=== PATIENT | male | born 1990 | race Hispanic/Latino ===

== ENCOUNTER 2016-06-04 14:02 | Emergency (ER) | payer OTHER, SELFPAY ==
[2016-06-04 14:28] LABS: #Basophils 0.1 thou/uL (0.0-0.2); #Eosinphils 0.1 thou/uL (0.0-0.7); #Lymphocytes 2.1 thou/uL (1.20-3.40); #Monocytes 0.6 thou/uL (0.11-0.59); #Neutrophils 7.7 thou/uL (1.40-6.50); %Basophils 0.6 % (0.0-1.0); %Eosinophils 1.3 % (0.0-10.0); %Monocytes 5.5 % (0.0-10.0); Hematocrit 42.8 % (42.0-52.0); Mean Platelet Volume 9.7 fL (7.4-10.4); Red Blood Cell (RBC) Count 4.61 mill/uL (4.70-6.10); White Blood Cell (WBC) Count 10.6 thou/uL (4.8-10.8)
[2016-06-04 14:44] LABS: ALT (SGPT) 35 U/L (0-55); AST (SGOT) 39 U/L (5-34); Alkaline Phosphatase 59 U/L (40-150); Anion Gap 13 mmol/L (10-20); BUN (Urea Nitrogen) 11 mg/dL (8.9-20.6); Bilirubin, Total 0.7 mg/dL (0.2-1.2); Calc. Creatinine Clearance 0 mL/min (70-130); Calcium 9.3 mg/dL (7.8-10.44); Carbon Dioxide 27 mmol/L (22-29); Chloride 103 mmol/L (98-107); Estimated GFR-MDRD 76; Lipase 20 U/L (8-78); Protein, Total 7.6 g/dL (6.0-8.3)
[2016-06-04] MEDS ORDERED: Fentanyl 100 MCG/2 ML VIAL ONE ×2 (14:55→15:58)
[2016-06-04] MEDS ORDERED: Adacel (T-DAP) 0.5 ML VIAL ONE (15:29)
[2016-06-04 15:47] LABS: Troponin I Less than 0.010 ng/mL (< 0.028)
--- NOTE | 2016-06-04 16:54 | ERRECORD ---
[facility] EMERGENCY RECORD HPI FALL (14:25 JPIP) CHIEF COMPLAINT: Patient presents for evaluation of fall, from height 15-20 feet, landing on hard surface, landing on back, Patient presents for evaluation of Fell from a roof top, approx 15 feet. HISTORIAN: History provided by patient, History obtained with the assistance of a hospitality team member, male accompanying patient. QUALITY: Pain is dull in nature. TIME COURSE: Sudden onset of symptoms, just prior to arrival, There has been no change in the patient's symptoms over time, are constant. ASSOCIATED WITH: No associated neck pain, No associated chest pain, No associated abdominal pain, Associated with back pain, moderate, to the upper back, to the lower back, No associated clavicle pain, No associated shoulder pain, No associated elbow pain, No associated wrist pain, No associated hand pain, No associated finger pain, No associated hip pain, No associated knee pain, No associated ankle pain, No associated foot pain, Associated with contusion(s), to the back, to the forearm, No associated laceration(s), Associated with inability to ambulate, No associated loss of consciousness, No associated neurological symptoms prior to arrival, No associated shortness of breath, No associated syncope, No associated vomiting. EXACERBATED BY: Patient's condition exacerbated by walking, Patient's condition exacerbated by movement , palpation and deep breathing/cough. RELIEVED BY: Patient's condition relieved by nothing. RISK FACTORS: Risk factors for spinal injury. ROS (14:27 JPIP) CONSTITUTIONAL: Historian denies lethargy, patient denies LOC or head injury. ENT: Historian denies otorrhea, denies rhinorrhea. CARDIOVASCULAR: Historian denies chest pain. RESPIRATORY: Historian denies cough, denies shortness of breath. back pain with respirations. GI: Historian denies abdominal pain, denies nausea, denies vomiting. GENITOURINARY MALE: Historian denies incontinence. MUSCULOSKELETAL: Historian reports arthralgias, reports back pain, denies deformity, reports fall, reports injury, reports myalgias. SKIN: Historian reports skin lesions, ulnar side of left forearm. NEUROLOGIC: Historian denies confusion, denies dizziness, denies focal weakness, denies headache, denies lethargy, denies mental status changes, denies paresthesias. NOTES: All systems reviewed, negative except as described above. &a-1R&a+25V*p+0X*k4857V*c202B*c15G*c2P*p-0X&a-25V&a+1R Name: Tab Omalley : 1990 M25 MedRec: [id number] AcctNum: [id number] Prepared: TueJun 04, 2016 16:18 by Interface Page 1 of 4 pMD [facility] EMERGENCY RECORD PAST MEDICAL HISTORY (15:41 JPIP) MEDICAL HISTORY: No past medical history. MALE SURGICAL HISTORY: Patient has no surgical history. PSYCHIATRIC HISTORY: No previous psychiatric history. SOCIAL HISTORY: Patient denies drug use, Patient has no smoking history. FAMILY HISTORY: No known family hisotry. NOTES: Nursing records reviewed, Medication list reviewed. KNOWN ALLERGIES No recorded allergies CURRENT MEDICATIONS No recorded medications VITAL SIGNS (14:08 [facility]) VITAL SIGNS: BP: 133/107, Pulse: 83, Resp: 16, Temp: 98.6 (Oral), Pain: 10, O2 sat: 100 on Room Air, Time: 06/04/2016 14:08. PHYSICAL EXAM (14:29 JPIP) CONSTITUTIONAL: Vital signs reviewed, Patient afebrile, Pulse normal, Blood pressure, hypertensive, Respiratory rate normal, Patient appears in pain, in moderate pain distress, Patient alert and oriented to person, place and time. HEAD: Head exam included findings of head atraumatic, normocephalic. EYES: Eye exam included findings of eyelids normal to inspection, Pupils equally round and reactive to light, Left pupil 3 mm in size, Right pupil 3 mm in size, Extraocular muscles intact, Conjunctiva normal, Sclera normal, no periorbital ecchymosis, no periorbital edema, no periorbital erythema. ENT: Ear exam normal, external ear normal, tympanic membranes normal, no foreign body, no drainage, no bleeding, Pharynx exam normal, not injected, Mouth exam normal, mucous membranes moist, no lacerations, Teeth with, poor dentition. NECK: Neck exam included findings of normal range of motion, Trachea midline, no cervical adenopathy, no tenderness. RESPIRATORY CHEST: Respiratory exam included findings of no respiratory distress, Breath sounds clear, No wheezing, No rales, No rhonchi, Breath sounds not absent, Breath sounds not diminished. CARDIOVASCULAR: Cardiovascular exam included findings of, rate tachycardic, rhythm regular, Heart sounds normal, no murmurs, no rub. ABDOMEN MALE: Abdominal exam included findings of abdomen nontender, Liver normal, Spleen normal, no distension, no mass, no pulsatile masses, no peritoneal signs, no rigidity, no guarding, no rebound. BACK: Back exam included findings of normal inspection, Range of motion, limited by pain, Tenderness, midline to the upper back, &a-1R&a+25V*p+0X*m0325Q*c202B*c15G*c2P*p-0X&a-25V&a+1R Name: FraustoTab Saucedo : 1990 M25 MedRec: [id number] AcctNum: [id number] Prepared: TueJun 04, 2016 16:18 by Interface Page 2 of 4 pMD [facility] EMERGENCY RECORD midline to the mid back, midline to the lower back, paraspinal to the left lower back, paraspinal to the right lower, Costovertebral angle tenderness, on the left. UPPER EXTREMITY: Upper extremity exam included findings of inspection abnormal, abrasions present, ulnar side of the left forearm from the olecranon to the wrist, range of motion normal, capillary refill less than 2 seconds, distal motor intact, Clavicle examination normal findings, bilaterally, no tenderness to palpation, Shoulder examination normal findings, both shoulders, no tenderness to palpation, Upper arm examination normal findings, bilaterally, no tenderness to palpation, Elbow examination normal findings, both elbows, no tenderness to palpation, Abrasions on the forearm, left forearm, proximal, middle, distal, medial, Forearm exam shows, no tenderness to palpation no deformity, Wrist examination normal findings, both wrists, no tenderness to palpation, Hand examination normal findings, both hands, no abrasions, no deformity, no swelling, full range of motion. LOWER EXTREMITY: Left pelvis exam normal, no obvious deformity, no tenderness, Right pelvis exam normal, no obvious deformity, no tenderness, Left hip exam normal, no deformity, no tenderness to palpation, Right hip exam normal, no deformity, no tenderness to palpation, Left thigh exam normal, no obvious deformity, no tenderness, Right thigh exam normal, no obvious deformity, no tenderness, Left knee exam normal, no deformity, no tenderness to palpation, Right knee exam normal, no deformity, no tenderness to palpation, Left lower leg exam normal, no obvious deformity, no tenderness, Right lower leg exam normal, no obvious deformity, no tenderness, Left ankle exam normal, no deformity, no tenderness, Right ankle exam normal, no deformity, no tenderness. NEURO: May coma scale 15, Cranial nerves intact, no focal motor deficits, no nystagmus, CN II-XII intact. SKIN: Skin exam included findings of skin warm, dry, and normal in color, abrasion to the ulnar side of the left forearm. PSYCHIATRIC: Normal affect. EKG INTERPRETATION (15:32 JPIP) MONITOR STRIP: clay products glazer strip interpreted by Emergency Department Physician, Monitor strip shows normal sinus rhythm, with no ectopics. 12 LEAD EKG INTERPRETATION: 12 lead EKG interpreted by Emergency Department Physician at time of study, 12 lead EKG shows normal sinus rhythm, Rate (beats per minute): 83, with no ectopics, Conduction with, incomplete right bundle branch block, ST segments normal, T waves normal, Minier, right, Clinical impression:, non-specific EKG. RADIOLOGYINTERPRETATION (15:09 JPIP) &a-1R&a+25V*p+0X*x3400N*c202B*c15G*c2P*p-0X&a-25V&a+1R Name: Tab Omalley : 1990 M25 MedRec: [id number] AcctNum: [id number] Prepared: TueJun 04, 2016 16:18 by Interface Page 3 of 4 pMD [facility] EMERGENCY RECORD HEAD: Head CT, with contrast shows, no fluid in the sinuses, no acute ischemic stroke, no epidural hematoma, no subarachnoid hemorrhage, Subdural hematoma to the left occipital lobe. NECK: Cervical spine CT negative, no fracture, no subluxation, no bony lesion, no cord compression. BACK: Thoracic spine CT shows, compression fracture, subluxation of T12. CHEST: Chest CT negative, with contrast, no pneumothorax, no hemothorax, no infiltrates, no effusion. ABDOMEN: Abdomen/pelvis CT scan, with contrast negative, no injuries, no free air. ASSISTANT SECRETARY: Preliminary review of CT scans by, Radiologist. MEDICATION ADMINISTRATION SUMMARY Drug Name: fentaNYL (PF) injection, Dose Ordered: 100 mcg, Route: IV Push, Status: Given, Time: 16:02 06/04/2016, Drug Name: Adacel(Tdap Adolesn/Adult)(PF), Dose Ordered: 0.5 mL, Route: Intramuscular, Status: Given, Time: 15:40 06/04/2016, Drug Name: Normal Saline, Dose Ordered: 150 mL/hr, Route: IV Fluid Infusion, Status: Given, Time: 15:27 06/04/2016, Drug Name: fentaNYL (PF) injection, Dose Ordered: 100 mcg, Route: IV Push, Status: Given, Time: 15:00 06/04/2016, Drug Name: Normal Saline, Dose Ordered: 1000 mL/hr, Route: IV Fluid Infusion, Status: Given, Time: 14:56 06/04/2016, Detailed record available in Medication Service section. PROBLEM LIST No recorded problems DIAGNOSIS (16:08 IP) FINAL: PRIMARY: TRAUMAT SUBDURAL HEMOR NO LOC INIT, ADDITIONAL: T12 compression fx. PRESCRIPTION No recorded prescriptions DISPOSITION PATIENT: Disposition Type: Transfer, Disposition: Transfer to [facility], Disposition Transport: Ambulance, Condition: Good. (16:08 IP) Patient left the department. (16:11 [facility]) Avilez: AHOO=[place] Salgado, August JPIP=DO Hess Joseph JSMI=DENISE Higgins, Sherin &a-1R&a+25V*p+0X*a2621R*c202B*c15G*c2P*p-0X&a-25V&a+1R Name: Tab Omalley : 1990 M25 MedRec: [id number] AcctNum: [id number] Prepared: TueJun 04, 2016 16:18 by Interface Page 4 of 4 pMD MTDD
--- NOTE | 2016-06-04 16:58 | PICIS ---
[facility] EMERGENCY RECORD COMMUNICATIONS (15:48 JPIP) COMMUNICATIONS: Physician, contacted/paged at 1548, Reason for notification transfer, Dr Lewis accepts. TRIAGE (14:35) PATIENT: Zip Code: [address], PHONE: , PAYMENT: SJX Self Pay. (14:35) AGE: 25, GENDER: male, : Tue1990, TIME OF GREET: TueJun 04, 2016 14:03, PREFERRED LANGUAGE: Prydeinig, ETHNICITY: or , ECODE BILLING MAP: [facility] ER, KG WEIGHT: 65.77 (est.), , , PERSON ID: [id number]. (14:15 JPIP) NAME: Tab Omalley (15:35) ADMISSION: URGENCY: 2 Emergent, ADMISSION SOURCE: Home, TRANSPORT: CAR, BED: TRIAGE. (14:15 JPIP) ASSESSMENT: Assessment: PT PRESENTS AWAKE ALERT AND ORIENTED. SKIN PINK WARM AND DRY., Symptoms began 06/04/2016 1330. (15:52 JSMI) PAIN: Patient complains of pain described as, aching, Pain is constant. (15:52 JSMI) IMMUNIZATIONS: Flu vaccine not up to date, Tetanus not up to date. (15:52 JSMI) SIRS SCORING: Heart Rate 55-109 (0), Temp range 96.8-101.1 (0), respiratory rate 12-24 (0), Latest WBC 3-14.9 (0), Mental Status altered: no (0), Infection or Suspected Infection: No. (15:52 JSMI) KNOWN ALLERGIES No recorded allergies CURRENT MEDICATIONS No recorded medications VITAL SIGNS (14:08 JSMI) VITAL SIGNS: BP: 133/107, Pulse: 83, Resp: 16, Temp: 98.6 (Oral), Pain: 10, O2 sat: 100 on Room Air, Time: 06/04/2016 14:08. NURSING PROCEDURE: EKG CHART (15:28 AHOO) PATIENT IDENTIFIER: Patient actively involved in identification process, Patient's identity verified by patient stating name, Patient's identity verified by patient stating date, Patient's identity verified by hospital ID bracelet, Patient's identity verified by other identifier PT BOSS. EKG: EKG indicated for TRAUMA FALL, 12 lead EKG performed on the left chest, done by SOMMER KOVACS LVN, first EKG. FOLLOW-UP: After procedure, EKG for interpretation given to Dr. DR HESS. NURSING PROCEDURE: IV IV SITE 1: IV established, to the left antecubital, using an 18 gauge catheter, in one attempt, IV site prepped with chlorahexadine. (14:15 JSMI) &a-1R&a+25V*p+0X*l5318S*c202B*c15G*c2P*p-0X&a-25V&a+1R Name: Tab Omalley : 1990 M25 MedRec: [id number] AcctNum: [id number] Prepared: TueJun 04, 2016 16:23 by Interface Page 1 of 12 pMD [facility] EMERGENCY RECORD FOLLOW-UP SITE 1: After procedure, sterile transparent dressing applied, After procedure, no drainage at IV site, After procedure, no swelling at IV site, After procedure, no redness at IV site, Notes: IV PATENT AND INFUSING WITHOUT ANY DIFFICULTY, NO BLEEDING, BRUISING OR EDEMA NOTED. (16:05 AHOO) NURSING PROCEDURE: TRANSFER TRANSFER: Reason for transfer need for specialized care, Diagnosis: SUBDURAL BLEED, T-12 COMPRESSION FRACTURE, Accepting institution: [facility], Accepting physician: DR LEWIS, Referring physician: DR HESS, Transported by urgent ambulance, accompanied by emergency medical services personnel, Copy of patient record prepared for receiving facility, Copy of diagnostic studies, Medication reconciliation form prepared and sent to receiving facility, Patient consent for transfer signed, Family member contacted, PT BOSS AT BEDSIDE AND PT BROTHER CALLED BY HIS BOSS, Notes: 1545 CALLED THE TRANSFER CENTER SPOKE WITH KRISTINE, AUTO LAUNCHED GROUND NOTIFIED EMS AT 1545, EMS ALREADY HERE IN ER, 1548 DR LEWIS ACCEPTED, 1548 ACCEPTING AD IS JOSH DICKENS. (16:03 AHOO) Report called to receiving facility, ASHLEY WALKER, Provided opportunity to answer questions, Bed assigned ER. (16:08 AHOO) NOTES: Notes: EMS LEFT WITH THE PT. (16:07 AHOO) NURSING PROCEDURE: TRANSPORT TO TESTS PATIENT IDENTIFIER: Patient actively involved in identification process, Patient's identity verified by patient stating name, Patient's identity verified by patient stating date, Patient's identity verified by hospital ID braryan, Patient's identity verified by family member. (14:20 AHOO) TRANSPORT TO TESTS: Patient transported to CT scan, via cart, Accompanied by x-ray solar technician. (14:20 AHOO) FOLLOW-UP: After procedure, patient returned to emergency department. (14:46 AHOO) ORDER DETAILS Order Name: Cardiac Profile w/CKMB & Troponin - I, Status: Active, Time: 15:21 06/04/2016, User: ERICH, - Ordered for: DO Hess Joseph, - Entered by: DO Hess Joseph - TueJun 04, 2016 15:21, - Quantity: 1, Order Name: CBC with Differential, Status: Active, Time: 14:16 06/04/2016, User: ERICH, - Ordered for: DO Hess Joseph, - Entered by: DO Hess Joseph - TueJun 04, 2016 14:16, - Quantity: 1, Order Name: CK (CPK), Status: Active, Time: 15:21 06/04/2016, User: ERICH, - Ordered for: DO Hess Joseph, - Entered by: DO Hess Joseph - TueJun 04, 2016 15:21, &a-1R&a+25V*p+0X*z8672O*c202B*c15G*c2P*p-0X&a-25V&a+1R Name: Tab Omalley : 1990 M25 MedRec: [id number] AcctNum: [id number] Prepared: TueJun 04, 2016 16:23 by Interface Page 2 of 12 D [facility] EMERGENCY RECORD - Quantity: 1, Order Name: Comprehensive Metabolic Panel, Status: Active, Time: 14:16 06/04/2016, User: ERICH, - Ordered for: DO Hess Joseph, - Entered by: DO Hess Joseph - TueJun 04, 2016 14:16, - Quantity: 1, Order Name: CT Brain WO Con, Status: Active, Time: 14:16 06/04/2016, User: ERICH, - Ordered for: DO Hess Joseph, - Entered by: DO Hess Joseph - TueJun 04, 2016 14:16, - Quantity: 1, Order Name: CT Cervical Spine WO Con, Status: Active, Time: 14:16 06/04/2016, User: ERICH, - Ordered for: DO Hess Joseph, - Entered by: DO Hess Joseph - TueJun 04, 2016 14:16, - Quantity: 1, Order Name: CT Chest Abd Pelvis W Con(Trauma), Status: Active, Time: 14:16 06/04/2016, User: ERICH, - Ordered for: DO Hess Joseph, - Entered by: DO Hess Joseph - TueJun 04, 2016 14:16, - Quantity: 1, Order Name: EKG 12 Lead in Emergency Room, Status: Active, Time: 15:21 06/04/2016, User: ERICH, - Ordered for: DO Hess Joseph, - Entered by: DO Hess Joseph - TueJun 04, 2016 15:21, - Quantity: 1, Order Name: ERRT Pulse Oximeter ER, Status: Active, Time: 14:16 06/04/2016, User: ERICH, - Ordered for: DO Hess Joseph, - Entered by: DO Hess Joseph - TueJun 04, 2016 14:16, - Quantity: 1, Order Name: Lipase, Status: Active, Time: 14:16 06/04/2016, User: ERICH, - Ordered for: DO Hess Joseph, - Entered by: DO Hess Joseph - TueJun 04, 2016 14:16, - Quantity: 1, Order Name: SALINE LOCK, Status: Done, Time: 14:51 06/04/2016, User: GARY, - Ordered for: DO Hess Joseph, - Entered by: DO Hess Joseph - TueJun 04, 2016 14:16, - Quantity: 1, Order Name: Urinalysis w/ Rflx Microscopic, Status: Canceled, Time: 16:10 06/04/2016, User: GARY, - Ordered for: DO Hess Joseph, - Entered by: DO Hess Joseph - TueJun 04, 2016 14:16, - Reason for Cancel: PT LEFT ER, - Quantity: 1. MEDICATION ADMINISTRATION SUMMARY &a-1R&a+25V*p+0X*g8832D*c202B*c15G*c2P*p-0X&a-25V&a+1R Name: Tab Omalley : 1990 M25 MedRec: [id number] AcctNum: [id number] Prepared: TueJun 04, 2016 16:23 by Interface Page 3 of 12 pMD [facility] EMERGENCY RECORD Drug Name: fentaNYL (PF) injection, Dose Ordered: 100 mcg, Route: IV Push, Status: Given, Time: 16:02 06/04/2016, Drug Name: Adacel(Tdap Adolesn/Adult)(PF), Dose Ordered: 0.5 mL, Route: Intramuscular, Status: Given, Time: 15:40 06/04/2016, Drug Name: Normal Saline, Dose Ordered: 150 mL/hr, Route: IV Fluid Infusion, Status: Given, Time: 15:27 06/04/2016, Drug Name: fentaNYL (PF) injection, Dose Ordered: 100 mcg, Route: IV Push, Status: Given, Time: 15:00 06/04/2016, Drug Name: Normal Saline, Dose Ordered: 1000 mL/hr, Route: IV Fluid Infusion, Status: Given, Time: 14:56 06/04/2016, Detailed record available in Medication Service section. MEDICATION SERVICE Adacel(Tdap Adolesn/Adult)(PF): Order: Adacel(Tdap Adolesn/Adult)(PF) (diphth,pertuss(acell),tet vac/preservative free) - Dose: 0.5 mL : Intramuscular Schedule: Now Ordered by: David Hess DO Entered by: David Hess DO TueJun 04, 2016 15:15 , Acknowledged by: Sherin Higgins RN TueJun 04, 2016 15:27 Documented as given by: Sherin Higgins RN TueJun 04, 2016 15:40 Patient, Medication, Dose, Route and Time verified prior to administration. Correct patient, time, route, dose and medication confirmed prior to administration, Patient advised of actions and side-effects prior to administration, Allergies confirmed and medications reviewed prior to administration, Patient in position of comfort, Side rails up, Cart in lowest position, Family at bedside. : Follow Up : Response assessment performed, No signs or symptoms of allergic reaction noted. (16:05 OO) fentaNYL (PF) injection: Order: fentaNYL (PF) injection (fentanyl citrate/preservative free) - Dose: 100 mcg : IV Push Schedule: Now Ordered by: David Hess DO Entered by: David Hess DO TueJun 04, 2016 14:49 , Acknowledged by: Sommer Kovacs LVN TueJun 04, 2016 14:51 Documented as given by: Sommer Kovacs LVN TueJun 04, 2016 15:00 Patient, Medication, Dose, Route and Time verified prior to administration. Amount given: 100MCG, IV SITE #1 IVP, initial medication, Slowly, Catheter placement confirmed via flush prior to administration, IV site without signs or symptoms of infiltration during medication administration, No swelling during administration, No drainage during administration, IV flushed after administration, Correct patient, time, route, dose and medication confirmed prior to administration, Patient advised of actions and side-effects prior to administration, Allergies confirmed and medications reviewed prior to administration, Patient in position of comfort, Side rails up, Cart in lowest position, Family at bedside. &a-1R&a+25V*p+0X*s0815T*c202B*c15G*c2P*p-0X&a-25V&a+1R Name: Tab Omalley : 1990 M25 MedRec: [id number] AcctNum: [id number] Prepared: TueJun 04, 2016 16:23 by Interface Page 4 of 12 pMD [facility] EMERGENCY RECORD : Follow Up : Response assessment performed, No signs or symptoms of allergic reaction noted, _IV SITE #1:_. (16:06 OO) fentaNYL (PF) injection: Order: fentaNYL (PF) injection (fentanyl citrate/preservative free) - Dose: 100 mcg : IV Push Schedule: Now Ordered by: David Hess DO Entered by: Sommer Kovacs LVN TueJun 04, 2016 16:01 , Acknowledged by: Sommer Kovacs LVN TueJun 04, 2016 16:02 Documented as given by: Sommer Kovacs LVN TueJun 04, 2016 16:02 Patient, Medication, Dose, Route and Time verified prior to administration. Amount given: 100MCG, IV SITE #1 IVP, Slowly, repeat same medication, Slowly, Awake and alert- acceptable, Catheter placement confirmed via flush prior to administration, IV site without signs or symptoms of infiltration during medication administration, No swelling during administration, No drainage during administration, IV flushed after administration, Correct patient, time, route, dose and medication confirmed prior to administration, Patient advised of actions and side-effects prior to administration, Allergies confirmed and medications reviewed prior to administration, Patient in position of comfort, Side rails up, Cart in lowest position, Family at bedside. : Follow Up : Response assessment performed, No signs or symptoms of allergic reaction noted, _IV SITE #1:_. (16:06 [facility]) Normal Saline: Order: Normal Saline (0.9 % sodium chloride) - Dose: 1000 mL/hr : IV Fluid Infusion Schedule: Now Ordered by: David Hess DO Entered by: David Hess DO TueJun 04, 2016 14:50 , Acknowledged by: Sommer Kovacs LVN TueJun 04, 2016 14:51 Documented as given by: Sommer Kovacs LVN TueJun 04, 2016 14:56 Patient, Medication, Dose, Route and Time verified prior to administration. Amount given: 1 L, IV SITE #1 IV fluids established for hydration, IV SITE #1 into left antecubital, IV SITE #1 1st bag hung, IV SITE #1 bolus of 1000 ml established, via gravity tubing, Catheter placement confirmed via flush prior to administration, IV site without signs or symptoms of infiltration during medication administration, No swelling during administration, No drainage during administration, IV flushed after administration, Correct patient, time, route, dose and medication confirmed prior to administration, Patient advised of actions and side-effects prior to administration, Allergies confirmed and medications reviewed prior to administration, Patient in position of comfort, Side rails up, Cart in lowest position, Family at bedside. : Follow Up : Response assessment performed, No signs or symptoms of allergic reaction noted, _IV SITE #1:_, IV fluid infusion discontinued, on TueJun 04, 2016 15:26, 30 minutes, ., Total amount infused: 1 L. (16:06 [facility]) &a-1R&a+25V*p+0X*e9652U*c202B*c15G*c2P*p-0X&a-25V&a+1R Name: Tab Omalley : 1990 M25 MedRec: [id number] AcctNum: [id number] Prepared: TueJun 04, 2016 16:23 by Interface Page 5 of 12 pMD [facility] EMERGENCY RECORD Normal Saline: Order: Normal Saline (0.9 % sodium chloride) - Dose: 150 mL/hr : IV Fluid Infusion Ordered by: David Hess DO Entered by: David Hess DO TueJun 04, 2016 15:22 , Acknowledged by: Sherin Higgins RN TueJun 04, 2016 15:27 Documented as given by: Sherin Higgins RN TueJun 04, 2016 15:27 Patient, Medication, Dose, Route and Time verified prior to administration. IV SITE #1 IV fluids established for hydration, Catheter placement confirmed via flush prior to administration, IV site without signs or symptoms of infiltration during medication administration, No swelling during administration, No drainage during administration, IV flushed after administration, Correct patient, time, route, dose and medication confirmed prior to administration, Patient advised of actions and side-effects prior to administration, Allergies confirmed and medications reviewed prior to administration, Patient in position of comfort, Side rails up, Cart in lowest position, Family at bedside. : Follow Up : Response assessment performed, No signs or symptoms of allergic reaction noted, _IV SITE #1:_, IV fluid infusion continued upon transfer from emergency department, on TueJun 04, 2016 16:07, 40 minutes, . (16:07 [facility]) HPI FALL (14:25 [facility]) CHIEF COMPLAINT: Patient presents for evaluation of fall, from height 15-20 feet, landing on hard surface, landing on back, Patient presents for evaluation of Fell from a roof top, approx 15 feet. HISTORIAN: History provided by patient, History obtained with the assistance of a seed corn manager production, male accompanying patient. QUALITY: Pain is dull in nature. TIME COURSE: Sudden onset of symptoms, just prior to arrival, There has been no change in the patient's symptoms over time, are constant. ASSOCIATED WITH: No associated neck pain, No associated chest pain, No associated abdominal pain, Associated with back pain, moderate, to the upper back, to the lower back, No associated clavicle pain, No associated shoulder pain, No associated elbow pain, No associated wrist pain, No associated hand pain, No associated finger pain, No associated hip pain, No associated knee pain, No associated ankle pain, No associated foot pain, Associated with contusion(s), to the back, to the forearm, No associated laceration(s), Associated with inability to ambulate, No associated loss of consciousness, No associated neurological symptoms prior to arrival, No associated shortness of breath, No associated syncope, No associated vomiting. EXACERBATED BY: Patient's condition exacerbated by walking, Patient's condition exacerbated by movement , palpation and deep breathing/cough. RELIEVED BY: Patient's condition &a-1R&a+25V*p+0X*b0745J*c202B*c15G*c2P*p-0X&a-25V&a+1R Name: Tab Omalley : 1990 M25 MedRec: [id number] AcctNum: [id number] Prepared: TueJun 04, 2016 16:23 by Interface Page 6 of 12 pMD [facility] EMERGENCY RECORD relieved by nothing. RISK FACTORS: Risk factors for spinal injury. ROS (14:27 JPIP) CONSTITUTIONAL: Historian denies lethargy, patient denies LOC or head injury. ENT: Historian denies otorrhea, denies rhinorrhea. CARDIOVASCULAR: Historian denies chest pain. RESPIRATORY: Historian denies cough, denies shortness of breath. back pain with respirations. GI: Historian denies abdominal pain, denies nausea, denies vomiting. GENITOURINARY MALE: Historian denies incontinence. MUSCULOSKELETAL: Historian reports arthralgias, reports back pain, denies deformity, reports fall, reports injury, reports myalgias. SKIN: Historian reports skin lesions, ulnar side of left forearm. NEUROLOGIC: Historian denies confusion, denies dizziness, denies focal weakness, denies headache, denies lethargy, denies mental status changes, denies paresthesias. NOTES: All systems reviewed, negative except as described above. PAST MEDICAL HISTORY (15:41 JPIP) MEDICAL HISTORY: No past medical history. MALE SURGICAL HISTORY: Patient has no surgical history. PSYCHIATRIC HISTORY: No previous psychiatric history. SOCIAL HISTORY: Patient denies drug use, Patient has no smoking history. FAMILY HISTORY: No known family hisotry. NOTES: Nursing records reviewed, Medication list reviewed. PHYSICAL EXAM (14:29 JPIP) CONSTITUTIONAL: Vital signs reviewed, Patient afebrile, Pulse normal, Blood pressure, hypertensive, Respiratory rate normal, Patient appears in pain, in moderate pain distress, Patient alert and oriented to person, place and time. HEAD: Head exam included findings of head atraumatic, normocephalic. EYES: Eye exam included findings of eyelids normal to inspection, Pupils equally round and reactive to light, Left pupil 3 mm in size, Right pupil 3 mm in size, Extraocular muscles intact, Conjunctiva normal, Sclera normal, no periorbital ecchymosis, no periorbital edema, no periorbital erythema. ENT: Ear exam normal, external ear normal, tympanic membranes normal, no foreign body, no drainage, no bleeding, Pharynx exam normal, not injected, Mouth exam normal, mucous membranes moist, no lacerations, Teeth with, poor dentition. NECK: Neck exam included findings of normal range of motion, Trachea midline, no cervical adenopathy, no tenderness. &a-1R&a+25V*p+0X*s8134E*c202B*c15G*c2P*p-0X&a-25V&a+1R Name: Tab Omalley : 1990 M25 MedRec: [id number] AcctNum: [id number] Prepared: TueJun 04, 2016 16:23 by Interface Page 7 of 12 pMD [facility] EMERGENCY RECORD RESPIRATORY CHEST: Respiratory exam included findings of no respiratory distress, Breath sounds clear, No wheezing, No rales, No rhonchi, Breath sounds not absent, Breath sounds not diminished. CARDIOVASCULAR: Cardiovascular exam included findings of, rate tachycardic, rhythm regular, Heart sounds normal, no murmurs, no rub. ABDOMEN MALE: Abdominal exam included findings of abdomen nontender, Liver normal, Spleen normal, no distension, no mass, no pulsatile masses, no peritoneal signs, no rigidity, no guarding, no rebound. BACK: Back exam included findings of normal inspection, Range of motion, limited by pain, Tenderness, midline to the upper back, midline to the mid back, midline to the lower back, paraspinal to the left lower back, paraspinal to the right lower, Costovertebral angle tenderness, on the left. UPPER EXTREMITY: Upper extremity exam included findings of inspection abnormal, abrasions present, ulnar side of the left forearm from the olecranon to the wrist, range of motion normal, capillary refill less than 2 seconds, distal motor intact, Clavicle examination normal findings, bilaterally, no tenderness to palpation, Shoulder examination normal findings, both shoulders, no tenderness to palpation, Upper arm examination normal findings, bilaterally, no tenderness to palpation, Elbow examination normal findings, both elbows, no tenderness to palpation, Abrasions on the forearm, left forearm, proximal, middle, distal, medial, Forearm exam shows, no tenderness to palpation no deformity, Wrist examination normal findings, both wrists, no tenderness to palpation, Hand examination normal findings, both hands, no abrasions, no deformity, no swelling, full range of motion. LOWER EXTREMITY: Left pelvis exam normal, no obvious deformity, no tenderness, Right pelvis exam normal, no obvious deformity, no tenderness, Left hip exam normal, no deformity, no tenderness to palpation, Right hip exam normal, no deformity, no tenderness to palpation, Left thigh exam normal, no obvious deformity, no tenderness, Right thigh exam normal, no obvious deformity, no tenderness, Left knee exam normal, no deformity, no tenderness to palpation, Right knee exam normal, no deformity, no tenderness to palpation, Left lower leg exam normal, no obvious deformity, no tenderness, Right lower leg exam normal, no obvious deformity, no tenderness, Left ankle exam normal, no deformity, no tenderness, Right ankle exam normal, no deformity, no tenderness. NEURO: May coma scale 15, Cranial nerves intact, no focal motor deficits, no nystagmus, CN II-XII intact. SKIN: Skin exam included findings of skin warm, dry, and normal in color, abrasion to the ulnar side of the left forearm. PSYCHIATRIC: Normal affect. &a-1R&a+25V*p+0X*y3418P*c202B*c15G*c2P*p-0X&a-25V&a+1R Name: Tab Omalley : 1990 M25 MedRec: [id number] AcctNum: [id number] Prepared: TueJun 04, 2016 16:23 by Interface Page 8 of 12 pMD [facility] EMERGENCY RECORD LAB INTERPRETATION (15:13 JPIP) INTERPRETATION: I reviewed the lab results, All labs normal except as noted below, No clinically significant lab abnormalities, CBC normal, Chemistry abnormal, Glucose elevated, Liver functions abnormal, AST(SGOT) elevated, Lipase normal. EVENTS TRANSFER: Triage to Emergency Triage. (TueJun 04, 2016 14:15 JPIP) Emergency Triage to Emergency Room -02. (14:26 AHOO) Removed from Emergency Emergency Room -02. (16:11 AHOO) RADIOLOGYINTERPRETATION (15:09 JPIP) HEAD: Head CT, with contrast shows, no fluid in the sinuses, no acute ischemic stroke, no epidural hematoma, no subarachnoid hemorrhage, Subdural hematoma to the left occipital lobe. NECK: Cervical spine CT negative, no fracture, no subluxation, no bony lesion, no cord compression. BACK: Thoracic spine CT shows, compression fracture, subluxation of T12. CHEST: Chest CT negative, with contrast, no pneumothorax, no hemothorax, no infiltrates, no effusion. ABDOMEN: Abdomen/pelvis CT scan, with contrast negative, no injuries, no free air. GIN CLERK: Preliminary review of CT scans by, Radiologist. EKG INTERPRETATION (15:32 JPIP) MONITOR STRIP: fisher hand line strip interpreted by Emergency Department Physician, Monitor strip shows normal sinus rhythm, with no ectopics. 12 LEAD EKG INTERPRETATION: 12 lead EKG interpreted by Emergency Department Physician at time of study, 12 lead EKG shows normal sinus rhythm, Rate (beats per minute): 83, with no ectopics, Conduction with, incomplete right bundle branch block, ST segments normal, T waves normal, [place], right, Clinical impression:, non-specific EKG. O2SAT INTERPRETATION (15:13 JPIP) O2SAT: Continuous pulse oximetry, Oxygen saturation 100%, on room air, Oxygen saturation interpretation: Normal, No intervention required, Intervention required: patient observed. PROBLEM LIST No recorded problems DIAGNOSIS (16:08 JPIP) FINAL: PRIMARY: TRAUMAT SUBDURAL HEMOR NO LOC INIT, ADDITIONAL: T12 compression fx. &a-1R&a+25V*p+0X*s7654O*c202B*c15G*c2P*p-0X&a-25V&a+1R Name: Tab Omalley : 1990 M25 MedRec: [id number] AcctNum: [id number] Prepared: TueJun 04, 2016 16:23 by Interface Page 9 of 12 [facility] EMERGENCY RECORD DISPOSITION PATIENT: Disposition Type: Transfer, Disposition: Transfer to [facility], Disposition Transport: Ambulance, Condition: Good. (16:08 JPIP) Patient left the department. (16:11 AHOO) PRESCRIPTION No recorded prescriptions IMAGING *EKG: Image captured from scanner. (15:50 AHOO) CONSENTS: Image captured from scanner. (16:12 AHOO) *MEMORANDUM OF TRANSFER: Image captured from scanner. (16:12 AHOO) PHYSICIAN CERTIFICATION STATEMENT: Image captured from scanner. (16:12 AHOO) *SUPPLY CHARGE SHEET: Image captured from scanner. (16:13 AHOO) TRAUMA NOTES: Image captured from scanner. (16:13 AHOO) Page 2 added. Image captured from scanner. (16:13 AHOO) Page 3 added. Image captured from scanner. (16:14 AHOO) Page 4 added. Image captured from scanner. (16:14 AHOO) Page 5 added. Image captured from scanner. (16:14 AHOO) RESULTS LABORATORY: CBC with Differential Collection DT: TueJun 04, 2016 14:26, White Blood Cell (WBC) Count 10.6 thou/uL, Range (4.8-10.8), *Red Blood Cell (RBC) Count 4.61 - L mill/uL, Range (4.70-6.10), Hemoglobin 14.8 g/dL, Range (14.0-18.0), Hematocrit 42.8 %, Range (42.0-52.0), Mean Corpuscular Volume 92.9 fl, Range (80.0-94.0), *Mean Corpuscular Hemoglobin 32.1 - H pg, Range (27.0-31.0), Mean Corpuscular HGB CONC 34.5 g/dL, Range (32.0-36.0), *RBC Distribution Width 11.0 - L %, Range (11.5-14.5), Platelet Count 226 thou/uL, Range (130-400), Mean Platelet Volume 9.7 fL, Range (7.4-10.4), %Neutrophils 72.5 %, Range (42.0-75.0), *%Lymphocytes 20.0 - L %, Range (21.0-51.0), %Monocytes 5.5 %, Range (0.0-10.0), %Eosinophils 1.3 %, Range (0.0-10.0), %Basophils 0.6 %, Range (0.0-1.0), *#Neutrophils 7.7 - H thou/uL, Range (1.40-6.50), #Lymphocytes 2.1 thou/uL, Range (1.20-3.40), *#Monocytes 0.6 - H thou/uL, Range (0.11-0.59), #Eosinphils 0.1 thou/uL, Range (0.0-0.7), #Basophils 0.1 thou/uL, Range (0.0-0.2). (14:34 [facility]) CBC with Differential Collection DT: TueJun 04, 2016 14:26, White Blood Cell (WBC) Count 10.6 thou/uL, Range (4.8-10.8), *Red Blood Cell (RBC) Count 4.61 - L mill/uL, Range (4.70-6.10), &a-1R&a+25V*p+0X*q2148F*c202B*c15G*c2P*p-0X&a-25V&a+1R Name: Tab Omalley : 1990 M25 MedRec: [id number] AcctNum: [id number] Prepared: TueJun 04, 2016 16:23 by Interface Page 10 of 12 pMD [facility] EMERGENCY RECORD Hemoglobin 14.8 g/dL, Range (14.0-18.0), Hematocrit 42.8 %, Range (42.0-52.0), Mean Corpuscular Volume 92.9 fl, Range (80.0-94.0), *Mean Corpuscular Hemoglobin 32.1 - H pg, Range (27.0-31.0), Mean Corpuscular HGB CONC 34.5 g/dL, Range (32.0-36.0), *RBC Distribution Width 11.0 - L %, Range (11.5-14.5), Platelet Count 226 thou/uL, Range (130-400), Mean Platelet Volume 9.7 fL, Range (7.4-10.4), %Neutrophils 72.5 %, Range (42.0-75.0), *%Lymphocytes 20.0 - L %, Range (21.0-51.0), %Monocytes 5.5 %, Range (0.0-10.0), %Eosinophils 1.3 %, Range (0.0-10.0), %Basophils 0.6 %, Range (0.0-1.0), *#Neutrophils 7.7 - H thou/uL, Range (1.40-6.50), #Lymphocytes 2.1 thou/uL, Range (1.20-3.40), *#Monocytes 0.6 - H thou/uL, Range (0.11-0.59), #Eosinphils 0.1 thou/uL, Range (0.0-0.7), #Basophils 0.1 thou/uL, Range (0.0-0.2). (14:36 JP) Lipase Collection DT: TueJun 04, 2016 14:26, Lipase 20 U/L, Range (8-78). (14:46 JPIP) Comprehensive Metabolic Panel Collection DT: TueJun 04, 2016 14:26, Sodium 139 mmol/L, Range (136-145), Potassium 3.6 mmol/L, Range (3.5-5.1), Chloride 103 mmol/L, Range (98-107), Carbon Dioxide 27 mmol/L, Range (22-29), Anion Gap 13 mmol/L, Range (10-20), BUN (Urea Nitrogen) 11 mg/dL, Range (8.9-20.6), Creatinine 1.16 mg/dL, Range (0.7-1.3), Estimated GFR-MDRD 76 , Reference Range for Estimated GFR: Greater than 90, mL/min/1.73 m2 NOTE: The MDRD equation has not been validated for use, with the elderly (over 70 years of age), women, patients with, serious comorbid condition or persons with extremes of body size, muscle, mass, or nutritional status. , *Glucose 118 - H mg/dL, Range (70-105), Calcium 9.3 mg/dL, Range (7.8-10.44), Bilirubin, Total 0.7 mg/dL, Range (0.2-1.2), Protein, Total 7.6 g/dL, Range (6.0-8.3), NOTE: Plasma values are generally 0.3 to 0.5 g/dL higher than serum values, due to the presence of fibrinogen. , Albumin 4.6 g/dL, Range (3.5-5.0), Globulin 3.0 g/dL, Range (2.4-3.5), Alb/Glob Ratio 1.5 g/dL, Range (1.2-2.2), Alkaline Phosphatase 59 U/L, Range (40-150), *AST (SGOT) 39 - H U/L, Range (5-34), ALT (SGPT) 35 U/L, Range (0-55). (14:46 JPIP) CK (CPK) Collection DT: TueJun 04, 2016 15:29, *CK (CPK) 224 - H U/L, Range (30-200). (15:43 JP) &a-1R&a+25V*p+0X*g7604O*c202B*c15G*c2P*p-0X&a-25V&a+1R Name: Tab Omalley : 1990 M25 MedRec: [id number] AcctNum: [id number] Prepared: TueJun 04, 2016 16:23 by Interface Page 11 of 12 pMD [facility] EMERGENCY RECORD Cardiac Profile w/CKMB & TropI Collection DT: TueJun 04, 2016 15:29, CKMB 2.4 ng/mL, Range (0-6.6), Troponin I Less than 0.010 ng/mL, Range (< 0.028), Reference Range , 0.00 - 0.028 ng/mL Negative 0.029 - 0.29 ng/mL , Indeterminate Greater or Equal to 0.3 ng/mL Strongly suggests [place] , . (15:53 JPIP) Avilez: AHOO=[place] Kovacs, August JPIP=DO Hess Joseph JSMI=DENISE Higgins Julie &a-1R&a+25V*p+0X*g8786K*c202B*c15G*c2P*p-0X&a-25V&a+1R Name: Tab Omalley : 1990 M25 MedRec: [id number] AcctNum: [id number] Prepared: TueJun 04, 2016 16:23 by Interface Page 12 of 12 pMD MTDD
--- NOTE | 2016-06-04 17:31 | CT ---
CT OF THE BRAIN WITHOUT CONTRAST 06/04/2016 A non-contrast CT of the brain shows a small amount of subdural blood along the left side of the fal x cerebri posteriorly. There is no significant mass effect at this time. No blood was seen elsewhe re. The ventricles are normal in size and show no shift. There is no sign of acute stroke, mass, o r edema. A small low-density area just below the left internal capsule is probably a small Virchow space. The calvarium appears intact with no apparent skull fracture. The mastoid air cells are araceli ar. There is no air fluid level in the sphenoid sinus. There is mucosal thickening in the ethmoid air cells bilaterally. IMPRESSION: Small amount of subdural blood on the left side of the falx cerebri posteriorly. Findings discussed with Dr. eHss at 1454 hours on 06/04/2016. POS: HOME
--- NOTE | 2016-06-04 17:37 | CT ---
CT OF THE CERVICAL SPINE 06/04/[address] of the cervical spine was performed. Axial slices were acquired and then coronal and sagi ttal reconstructions were done. No fracture, dislocation, or acute traumatic change was seen aside from loss of the normal cervical lordosis. This may be due to muscle spasm. There is no sign of foraminal or central canal stenosis . The surrounding soft tissues appear normal. IMPRESSION: Loss of cervical lordosis. No other traumatic changes appreciated. POS: HOME
--- NOTE | 2016-06-04 17:50 | CT ---
CT CHEST ABDOMEN AND PELVIS WITH CONTRAST 06/04/[address] of the chest, abdomen and pelvis was performed following trauma. Axial slices were acquir ed and then coronal and sagittal reconstructions were done. CT OF THE THORAX: The mediastinum appears normal. There is no sign of hematoma. The aorta appears intact. The heart shows no pericardial effusion. The lungs are clear with no sign of parenchymal hematoma. There is a noncalcified pulmonary nodule in the superior part of the right lower lobe that measures 5 mm in size. There are no effusions or pneumothorax. The ribs appeared intact. There is a fracture, tellez azra, of the T12 vertebral body. There is an anterior compression, but no displacement of fragments was appreciated. IMPRESSION: 1. T12 anterior compression fracture. 2. Heart and lungs all appear intact with no acute traumatic changes to them. CT ABDOMEN AND PELVIS: The liver, spleen, pancreas, adrenal glands, kidneys, gallbladder, and abdominal aorta all appear in tact. There is no sign of laceration or hematoma of any organ. There is no hydronephrosis of the k idneys. The T12 compression fracture is noted. The bowel is nondistended. No free air or free fluid was seen in the abdomen or pelvis. CT of the pelvis shows no mass, fluid collection, or inflammatory change. The bony pelvis appears i ntact. The lumbar spine appeared intact. There may be some central bulging of the L5-S1 disk. IMPRESSION: No acute traumatic findings in the abdomen and pelvis aside from the T12 compression. POS: HOME
== END 2016-06-04 16:07 | disposition short-term general hospital (02) ==
LOC: BURERS 14:02
DX: S06.5X0A Traumatic subdural hemorrhage without loss of consciousness, initial encounter (principal); S22.080A Wedge compression fracture of T11-T12 vertebra, initial encounter for closed fracture; W13.2XXA Fall from, out of or through roof, initial encounter
CPT/HCPCS: 36415; 70450; 71260; 72125; 74177; 80053; 82550; 82553; 83690; 84484; 85025; 90471; 90715; 93005; 94760; 96361; 96374; 96376; J3010